=== PATIENT | male | born 1970 | race American Indian/Alaskan Native ===

== ENCOUNTER 2018-01-13 09:14 | Emergency (ER) | payer OTHER ==
--- NOTE | 2018-01-13 10:55 | C.PDOC ---
History Of Present Illness 47 y/o male presents to ED with c/o weakness to right leg for 3-4 week worse yesterday prompting visit to ED today. Patient denies trauma, back pain, bowel/bladder incontinence, dysuria, abdominal pain, saddle anesthesia, IVDA or any other complaints at this time. Time Seen by Provider: 01/13/18 10:17 Chief Complaint (Nursing): Lower Extremity Problem/Injury History Per: Patient History/Exam Limitations: no limitations Onset/Duration Of Symptoms: Days Current Symptoms Are (Timing): Still Present Past Medical History Reviewed: Historical Data, Nursing Documentation, Vital Signs Vital Signs: Last Vital Signs Temp 98.5 F 01/13/18 09:14 Pulse 54 L 01/13/18 09:14 Resp 18 01/13/18 09:14 BP 176/93 H 01/13/18 09:14 Pulse Ox 100 01/13/18 09:14 - Medical History PMH: HTN, Hypothyroidism Surgical History: No Surg Hx Family History: States: No Known Family Hx - Social History Hx Alcohol Use: No Hx Substance Use: No - Immunization History Hx Tetanus Toxoid Vaccination: No Hx Influenza Vaccination: No Hx Pneumococcal Vaccination: No Review Of Systems Except As Marked, All Systems Reviewed And Found Negative. Musculoskeletal: Positive for: Leg Pain (weakness) Physical Exam - Physical Exam Appears: Non-toxic, No Acute Distress Skin: Warm, Dry, No Rash Head: Atraumatic, Normacephalic Eye(s): bilateral: Normal Inspection Oral Mucosa: Moist Cardiovascular: Rhythm Regular Respiratory: Normal Breath Sounds, No Rales, No Rhonchi, No Wheezing Gastrointestinal/Abdominal: Soft, No Tenderness, No Mass, No Guarding, No Rebound Back: No CVA Tenderness, No Paraspinal Tenderness Extremity: No Calf Tenderness, Capillary Refill (<2 seconds), No Deformity, No Swelling, Other (when walking patient drags right leg) Extremity: Bilateral: Normal ROM Pulses: Left Dorsalis Pedis: Normal, Right Dorsalis Pedis: Normal Neurological/Psych: Oriented x3, Normal Speech, Normal Cognition, No Cerebellar Signs, Normal Motor (patient has no weakness in comparison to left leg however when walking patient drags the right leg. ), Normal Sensation, Normal Reflexes (+2 at patella, ) ED Course And Treatment - Laboratory Results Result Diagrams: 01/13/18 11:12 01/13/18 11:12 O2 Sat by Pulse Oximetry: 100 (RA) Pulse Ox Interpretation: Normal Against Medical Advice - AMA Patient Left Against Medical Advice: The patient declines admission to the hospital and wishes to leave the Emergency Department. This action is against my medical advice. This decision was made with informed refusal. The patient was told that admission to the hospital is necessary. Explanation of the reasons why were discussed. The risks of leaving were explained to the patient and include, but are not limited to, worsening of known or currently unknown conditions, permanent disability and from undiagnosed or untreated conditions. The patient has the capacity to make this informed decision and understands my explanation of the current medical problem and risks of leaving. The patient voluntarily accepts these risks and signed an AMA form documenting our conversation. The patient was given the opportunity to ask questions and reconsider. The patient was encouraged to return to the Emergency Department at any time for further care. Medical Decision Making Medical Decision Making: Progress: D/w Dr. Lobo who advised patient have MRI Disposition - Disposition Disposition: AGAINST MEDICAL ADVICE Disposition Time: 13:50 Condition: SERIOUS Forms: [email or web address] (Swedish) - Clinical Impression Clinical Impression: Leg weakness - Scribe Statement The provider has reviewed the documentation as recorded by the Scribe Raul Manrique All medical record entries made by the Scribe were at my direction and personally dictated by me. I have reviewed the chart and agree that the record accurately reflects my personal performance of the history, physical exam, me dical decision making, and the department course for this patient. I have also personally directed, reviewed, and agree with the discharge instructions and disposition.
[2018-01-13 11:23] LABS: BASO % 0.3 % (0.0-2.0); EOS # 0.1 K/uL (0.0-0.7); EOS % 0.7 % (0.0-4.0); HEMOGLOBIN 12.5 g/dL (12.0-18.0); LYMPH % 24.1 % (20.0-40.0); MEAN CORPUSCULAR HGB CONC 33.4 g/dL (33.0-37.0); MEAN PLATELET VOLUME 8.3 fL (7.2-11.7); MONO # 0.8 K/uL (0.0-0.8); MONO % 6.5 % (0.0-10.0); NEUT # 8.4 K/uL (1.8-7.0); NEUT % 68.4 % (50.0-75.0); RBC 4.32 Mil/uL (4.40-5.90); RED CELL DISTRIBUTION WIDTH 14.1 % (11.5-14.5); WHITE BLOOD COUNT 12.3 K/uL (4.8-10.8)
[2018-01-13 11:39] LABS: ALB/GLOB RATIO 1.1 (1.0-2.1); ALBUMIN 4.2 g/dL (3.5-5.0); ALT/SGPT 12 U/L (21-72); AST/SGOT 17 U/L (17-59); BLOOD UREA NITROGEN 14 mg/dL (9-20); CALCIUM 9.6 mg/dl (8.6-10.4); GFR NON-AFRICAN AMERICAN > 60
[2018-01-13 12:32] VITALS: BP 170/92; PULSE 62; RESP 22; TEMP 98.9
[2018-01-13 12:59] VITALS: O2SAT 100
== END 2018-01-13 12:36 | disposition left against medical advice (07) ==
LOC: C.ER 09:14
DX: R53.1 Weakness (principal)